=== PATIENT | female | born 2000 | race Caucasian/White ===

== ENCOUNTER 2020-02-25 19:10 | Inpatient (IN) ==
[2020-02-25 19:44] LABS: Basophils % 0.3 % (0.0-0.8); Eosinophils # 0.1 10*3/uL (0.0-0.87); Eosinophils % 1.2 % (0.00-10.9); Hematocrit 36.8 VOL% (35.7-47.0); Immature Granulocytes % 0.6 %; Immature Granulocytes Absolute 0.07 #; Lymphocytes % 25.8 % (21.3-54.2); Mean Corpuscular HGB Conc 32.6 GM/DL (32-36); Mean Corpuscular Volume 88.7 FL (87-102); Mean Platelet Volume 10.9 FL (9.6-12.0); Monocytes % 6.1 % (1.7-12.7); Platelet Count 325 T/CUMM (130-400); Red Blood Count 4.15 MC/CUMM (3.8-5.5); Red Cell Distribution Width 15.9 % (9.3-17.3); White Blood Count 11.7 T/CUMM (4-12)
[2020-02-25 20:04] LABS: Alanine Aminotransferase 81 U/L (13-56); Albumin 2.2 G/DL (3.4-5.0); Alkaline Phosphatase 222 U/L (45-117); Aspartate Amino Transferase 45 U/L (0-37); Bilirubin,Total < 0.39 MG/DL (0.2-1.0); Blood Urea Nitrogen 15 MG/DL (7-18); Calcium 8.4 MG/DL (8.5-10.1); Estimated Glom Filtration Rate 99 ML/MIN; Glucose 139 MG/DL (74-106); Osmolality,Calculated 272.1 MOS/KG (273-304); Total Protein 7.5 G/DL (6.4-8.3)
[2020-02-26] MEDS: MEPERIDINE 50 MG/1 ML VIAL IV PRN ×2 (00:59→13:01)
[2020-02-26] MEDS: ONDANSETRON 4 MG/2 ML VIAL IV PRN ×2 (01:00→09:26)
[2020-02-26 03:15] LABS: INR 0.9; PT Patient Result 9.6 SECS (9.8-11.9); Partial Thromboplastin Time 23.6 SECS (23.9-33.8)
[2020-02-26] MEDS ORDERED: OXYTOCIN/LR 20 UNIT/1,000 ML BAG IV SCH (04:30)
[2020-02-26] MEDS: LACTATED RINGERS 1,000 ML IV SCH ×2 (04:32→04:40)
[2020-02-26] MEDS: BUTORPHANOL 2 MG/ML VIAL IV PRN ×2 (04:40→09:25)
[2020-02-26] MEDS ORDERED: diphenhydrAMINE 50 MG/1 ML VIAL IV PRN ×2 (08:42)
[2020-02-26] MEDS ORDERED: PROMETHAZINE 25 MG/1 ML VIAL IM ONE (08:42)
[2020-02-26] MEDS ORDERED: LACTATED RINGERS 1,000 ML IV ONE (08:42)
[2020-02-26] MEDS ORDERED: ONDANSETRON 4 MG/2 ML VIAL IV ONE (08:42)
[2020-02-26] MEDS ORDERED: hydrOXYzine HCL 25 MG/1 ML VIAL IM PRN (08:42)
[2020-02-26] MEDS ORDERED: ePHEDrine 50 MG/ML AMP IV PRN (08:42)
[2020-02-26] MEDS ORDERED: FAMOTIDINE 20 MG/2 ML VIAL IV ONE (08:47)
[2020-02-26] MEDS ORDERED: NALOXONE 0.4 MG/ML VIAL IV PRN (08:47)
[2020-02-26] MEDS ORDERED: CITRIC ACID/SODIUM CITRATE 30 ML UDCUP PO ONE (08:47)
[2020-02-26] MEDS ORDERED: CITRIC ACID/SODIUM CITRATE 30 ML UDCUP ONE (08:55)
[2020-02-26] MEDS ORDERED: fentaNYL 2 MCG/ROPIV 0.2% EPID 100 ML EPIDURAL SCH (09:00)
[2020-02-26 11:45] LABS: Apearance,Urine CLEAR (Clear); Bacteria,Urine Occasional /HPF (Few); Bilirubin,Urine Negative (Negative); Blood, Urine Negative (Negative); Glucose,Urine (UA) Negative (Negative); Ketones,Urine Negative (Negative); Mucus,Urine Occasional /LPF (Occasional); Nitrite,Urine Negative (Negative); Protein,Urine 100 MG/DL; RBC,Urine 1 /HPF (0-4); Squamous Epithelial Cell,Urine Occasional /HPF (0-10); Urine Color Yellow (Yellow); Urine Specific Gravity 1.012 (1.001-1.035); Urine Urobilinogen < 2.0 EU/DL (0.2-1.0); WBC,Urine 2 /HPF (0-6)
[2020-02-26] MEDS ORDERED: OXYTOCIN/LR 20 UNIT/1,000 ML BAG IV ONE ×2 (11:59→13:36)
[2020-02-26] MEDS ORDERED: CARBOPROST TROMETHAMINE 250 MCG/ML AMP IM ONE (11:59)
[2020-02-26] MEDS ORDERED: miSOPROStoL 200 MCG TABLET ONE (11:59)
[2020-02-26] MEDS ORDERED: TRANEXAMIC ACID 1,000 MG/10 ML VIAL ONE (11:59)
[2020-02-26] MEDS ORDERED: LIDOCAINE 1% 50 ML VIAL ONE (12:00)
[2020-02-26 12:55] LABS: Cord Arterial Blood HCO3 22.1 MMOL/L
[2020-02-26 12:58] LABS: Cord Venous Blood HCO3 22.3 MMOL/L; Cord Venous Blood PCO2 62.1 MMHG; Cord Venous Blood PO2 13.2 MMHG
[2020-02-26] MEDS ORDERED: ONDANSETRON 4 MG/2 ML VIAL IV PRN (13:36)
[2020-02-26] MEDS ORDERED: ACETAMINOPHEN 325 MG TABLET PO PRN (13:36)
[2020-02-26] MEDS ORDERED: LANOLIN 50% CREAM 0.3 OZ TUBE TOP PRN (13:36)
[2020-02-26] MEDS ORDERED: HYDROCORTISONE 2.5% RECTAL CREAM 30 GM TUBE TOP PRN (13:36)
[2020-02-26] MEDS ORDERED: BISACODYL 10 MG SUPP RECTAL PRN (13:36)
[2020-02-26] MEDS ORDERED: WITCH HAZEL PADS 100/JAR TOP PRN (13:36)
[2020-02-26] MEDS ORDERED: oxyCODONE/ACETAMINOPHEN 5-325 MG TABLET PO PRN ×2 (13:36)
[2020-02-26] MEDS ORDERED: DIPH/TET/ACEL PERT BOOSTER VACCINE 0.5 ML VIAL IM ONE (13:36)
[2020-02-26] MEDS ORDERED: MEASLES/MUMPS/RUBELLA VACCINE 0.5 ML VIAL SUBCUT ONE (13:36)
[2020-02-26] MEDS ORDERED: BENZOCAINE 20%/MENTHOL 0.5% SPRAY 56 GM CAN TOP PRN (13:36)
[2020-02-26] MEDS ORDERED: RHO(D) IMMUNE GLOBULIN 300 MCG SYRINGE IM ONE (13:36)
[2020-02-26] MEDS ORDERED: IBUPROFEN 800 MG TABLET PO PRN (13:36)
[2020-02-26] MEDS ORDERED: hydrALAZINE 20 MG/1 ML VIAL IV ONE (15:48)
[2020-02-26] MEDS: DOCUSATE SODIUM 100 MG CAPSULE PO SCH (21:14)
[2020-02-27 07:04] LABS: Basophils % 0.3 % (0.0-0.8); Eosinophils # 0.1 10*3/uL (0.0-0.87); Eosinophils % 1.1 % (0.00-10.9); Hematocrit 34.4 VOL% (35.7-47.0); Hemoglobin 10.9 GM/DL (12.0-16.0); Immature Granulocytes % 0.9 %; Lymphocytes # 2.9 10*3/uL (1.4-4.0); Lymphocytes % 24.9 % (21.3-54.2); Mean Corpuscular HGB Conc 31.7 GM/DL (32-36); Mean Corpuscular Volume 90.1 FL (87-102); Mean Platelet Volume 10.9 FL (9.6-12.0); Monocytes % 6.4 % (1.7-12.7); Neutrophils % 66.4 % (38.7-73.9); Platelet Count 222 T/CUMM (130-400); Red Blood Count 3.82 MC/CUMM (3.8-5.5); Red Cell Distribution Width 16.5 % (9.3-17.3); White Blood Count 11.5 T/CUMM (4-12)
[2020-02-27] MEDS: DOCUSATE SODIUM 100 MG CAPSULE PO SCH (08:07)
[2020-02-27 11:54] VITALS: BP 147/97
== END 2020-02-27 16:50 | disposition home or self-care (01) | DRG 560 ==
LOC: N.LDOUT 19:10 → N.LD 19:11 → N.OB 02-26 17:30
PROVIDERS: ADMIT Obstetrics & Gynecology; ATTEND Obstetrics & Gynecology